=== PATIENT | female | born 1945 | race Caucasian/White ===

== ENCOUNTER 2018-07-30 14:36 | Inpatient (IN) | payer MEDICARE, OTHER ==
[~2018-07-30] VITALS: Ht 154.9 cm; Wt 97.1 kg
[~2018-07-30 14:36] MED LIST: 8 HOUR PAIN RE650 M1 PO; ADULT LOW DOSE81 MG; AMBEREN; ASPIRIN325 PO; CALTRATE-600 W1 EACH PO; CARTIA PO; COLACE100 MG PO; COUMADIN 5 MG TA5 M1 PO; CYMBALTA60 MG PO; ENALAPRIL-HCTZ1 EAC1 PO; FEOSOL PO; FISH OIL 1,0001 EAC5; GLYBURIDE PO; HUMALOG PE100 UNIT/1 SC; HYDROCHLOROTH12.5 M1 PO; IMDUR 30 MG TAB30 M1 PO; LEVEMIR SUBQ; METFORMIN PO; NITROSTAT0.4 MG SL; NOVOLOG100 UNIT/1; NOVOLOG100 UNIT/1 SQ; SIMVASTATIN40 MG PO; SORINE 80 MG TA80 M1 PO; VASOTEC5 MG PO; XALATAN2.5 ML OPHTHALMIC
[2018-07-30 17:00] VITALS: BP 133/60
[2018-07-30 20:00] VITALS: BP 101/60
[2018-07-30 20:07] LABS: HEMATOCRIT 30.3 % (37.0-47.0); HEMOGLOBIN 10.2 gm/dL (12.0-15.0); MCH 30.2 pg (26.0-34.0); MCHC 33.6 g/dL (28.0-37.0); MPV 9.2 fl. (7.2-11.1); RBC 3.37 mil/uL (4.20-5.00); RDW-CV 16.3 % (10.5-14.5); WBC 4.7 thou/uL (4.0-11.0)
--- NOTE | 2018-07-30 20:08 | NUR ---
ASSUMED PT CARE AT 1700, PT DIRECT ADMIT. AOX4, UP AD BIANCA, O2 SAT 90'S RA. 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 PT DENIES ANY PAIN. ADMISSION ASSESSMENT DONE. GET SITUATED TO ROOM. PT FOR ACCU CHECK. PT FOR XRAY, ECHO. PT IS ON CARB CONTROL DIET. 2000 ML FLUID RESTRICTION. HOURLY ROUNDING, CALL LIGHT WITHIN REACH. GIVE REPORT TO NIGHT NURSE. WILL CONTINUE TO MONITOR.
--- NOTE | 2018-07-30 20:26 | NUR ---
i have reviewed and agree with the assesments and note of Dominic Berry RN on 07/30/18
[2018-07-30 20:30] LABS: ALBUMIN 3.5 g/dL (3.4-5.0); CALCIUM 9.2 mg/dL (8.5-10.1); CREATININE 1.6 mg/dL (0.6-1.3); POTASSIUM 4.4 mmol/L (3.5-5.1); TOTAL BILIRUBIN 0.4 mg/dL (<0.1-1.0); TOTAL PROTEIN 7.1 g/dL (6.4-8.2)
[2018-07-31 00:24] VITALS: BP 126/52
[2018-07-31 04:00] VITALS: BP 126/60
[2018-07-31 08:00] VITALS: BP 95/63
[2018-07-31] MEDS ORDERED: FUROSEMIDE 20 M20 M1 PO (09:41)
--- NOTE | 2018-07-31 11:31 | NUR ---
ASSUMED PT CARE AT 0730, AOX4, UP AD BIANCA. O2 SAT AT 90'S RA. PT DENIES PAIN. TRACING AFIB ON ERADICATOR. PT FOR ACCU CHECK. PT LUNG SOUND CLEAR. PT HAS BILATERAL FEET EDEMA. PT ON 2000 ML FLUID RESTRICTION. PT FOR EKG, CARDIAC ECHO. VSS, AM ASSESSMENT CHARTED. MEDS GIVEN PER MAY. CALL LIGHT WITHIN REACH. WILL CONTINUE TO MONITOR.
--- NOTE | 2018-07-31 14:14 | NUR ---
Pt is A&O. Resides at home alone. Active and independent. No DME. No hx of HH or SNF. Planned cardioversion tomorrow. Goal is [place] at [place]. Follwoing.
--- NOTE | 2018-07-31 14:34 | 2DMMODE ---
[place] [address] 2 D/M-MODE ECHOCARDIOGRAM Name: SULEMA KEBEDE Room: [facility] IN [facility]#: [id number] Admission: 07/30/18 Attend Phys: Mahendra Foss, Discharge: Date of : 47 Date of Service: 07/31/18 1434 Report #: [id number] THIS REPORT FOR: //name// APPROVED REPORT Study performed: 07/31/2018 09:52:34 EXAM: Comprehensive 2D, Doppler, and color-flow Echocardiogram Patient Location: In-Patient Room #: [facility] Status: routine BSA: 1.94 HR: 100 bpm BP: 126/60 mmHg Rhythm: Atrial Fibrillation Other Information Study Quality: Good Indications Atrial Fibrillation 2D Dimensions IVSd: 11.02 (7-11mm) LVOT Diam: 19.90 (18-24mm) LVDd: 40.33 mm PWd: 12.01 (7-11mm) Ascending Ao: 32.62 (22-36mm) LVDs: 24.74 (25-40mm) Aortic Root: 28.96 mm Volumes Left Atrial Volume (Systole) LA ESV Index: 33.30 mL/m2 Aortic Valve AoV Peak David.: 1.30 m/s AO Peak Gr.: 6.78 mmHg LVOT Max P.63 mmHg AO Mean Gr.: 3.88 mmHg LVOT Mean P.30 mmHg LVOT Max V: 1.08 m/s AO V2 VTI: 26.37 cm LVOT Mean V: 0.70 m/s ELEAZAR (VTI): 2.78 cm2 LVOT V1 VTI: 23.60 cm Mitral Valve E/A Ratio: 0.91 MV Decel. Time: 169.90 ms MV E Max David.: 1.12 m/[place] [address] 2 D/M-MODE ECHOCARDIOGRAM Name: SULEMA KEBEDE Room: [address] IN .R.#: [id number] Admission: 07/30/18 Attend Phys: Mahendra Foss, Discharge: Date of : 47 Date of Service: 07/31/18 1434 Report #: [id number] MV PHT: 49.27 ms MVA (PHT): 4.47 cm2 TDI E/Lateral E': 10.18 E/Medial E': 9.33 Medial E' David.: 0.12 m/s Lateral E' David.: 0.11 m/s Pulmonary Valve PV Peak David.: 0.96 m/s PV Peak Gr.: 3.66 mmHg Tricuspid Valve RAP Estimate: 5.00 mmHg TR Peak Gr.: 24.38 mmHg RVSP: 29.00 mmHg PA Pressure: 29.00 mmHg Left Ventricle The left ventricle is normal size. There is normal LV segmental wall motion. There is normal left ventricular wall thickness. Left ventricular systolic function is normal. LVEF is 60-65%. This study is not technically sufficient to allow evaluation of the LV diastolic function due to atrial fibrillation. Right Ventricle The right ventricle is normal size. The right ventricular systolic function is normal. Atria Left atrium is mildly dilated. Right atrium is mildly dilated. Aortic Valve The aortic valve is normal in structure. No aortic regurgitation is present. There is no aortic valvular stenosis. Mitral Valve There is mitral annular calcification. Trace mitral regurgitation. No evidence of mitral valve stenosis. Tricuspid Valve The tricuspid valve is normal in structure. Trace tricuspid regurgitation. Mild pulmonary hypertension. Pulmonic Valve The pulmonary valve is normal in structure. There is no pulmonic [place] [address] 2 D/M-MODE ECHOCARDIOGRAM Name: THOMASFLORENTINO ANDREWSDONNA Mcgarry Room: [address]#: [id number] Admission: 07/30/18 Attend Phys: Mahendra Foss, Discharge: Date of : 47 Date of Service: 07/31/18 1434 Report #: [id number] Great Vessels The aortic root is normal in size. IVC is normal in size and collapses >50% with inspiration. Pericardium There is no pericardial effusion. <Conclusion> The left ventricle is normal size. There is normal left ventricular wall thickness. Left ventricular systolic function is normal. LVEF is 60-65%. Left atrium is mildly dilated. Right atrium is mildly dilated. Trace mitral regurgitation. Trace tricuspid regurgitation. Mild pulmonary hypertension. <ELECTRONICALLY SIGNED> By: Mahendra Foss MD, FACC 07/31/18 1434 1434 1434 Mahendra Foss MD, FACC /INF
--- NOTE | 2018-07-31 14:51 | EKG ---
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1945 Requested By: Angela Flynn Order Number: [id number] Reading MD: Mahendra Foss Measurements Intervals [place] Rate: 88 P: MD: QRS: -38 QRSD: 92 T: 157 QT: 403 QTc: 488 Interpretive Statements Atrial fibrillation Left axis deviation Abnormal R-wave progression, late transition Nonspecific T abnormalities, lateral leads Borderline prolonged QT interval Compared to ECG 10/27/2010 09:16:17 T-wave abnormality now present Sinus rhythm no longer present Electronically Signed On 07-31-2018 14:51:28 CDT by Mahendra Foss [email or web address] <ELECTRONICALLY SIGNED> By: Mahendra Foss MD, [facility] 07/31/18 1451 1134 [id number] Mahendra Foss MD, [facility] /EPI
[2018-07-31 17:14] VITALS: BP 124/58
--- NOTE | 2018-07-31 18:22 | NUR ---
PT AOX4. UP AD BIANCA. PT STILL AFIB. PT HR 80-90s. PT FOR ACCU CHECK. 2OOOML FLUID RESTRICTION. PT HAS BILATERAL FEET/LEG EDEMA. IV ACCESS INTACT. PT NPO MIDNIGHT. REMINDED TO USE CALL LIGHT. ALL NEEDS MET AT THIS TIME. WILL CONTINUE TO MONITOR.
--- NOTE | 2018-07-31 18:52 | NUR ---
I HAVE REVIEWED AND AGREE WITH THE ASSESMENT AND NOTE OF LUCIA Balderas RN ON 07/30/18
[2018-07-31 20:00] VITALS: BP 126/60
[2018-08-01 00:07] VITALS: BP 134/56
[2018-08-01 04:22] VITALS: BP 137/57
[2018-08-01 05:20] LABS: CHOLESTEROL 130 mg/dL (<200); HDL CHOLESTEROL 40 mg/dL (>40); LDL CHOLESTEROL 57 mg/dL (<100); TC:HDL 3.3 Ratio (Not establshd); TRIGLYCERIDE 169 mg/dL (<150); VLDL 34 mg/dL (<40)
[2018-08-01 05:40] LABS: SERUM ASSESSMENT CLEAR
--- NOTE | 2018-08-01 07:00 | NUR ---
ASSUMED PT CARE AT 1930. ASSESSMENT COMPLETED CHARTED. ABLE TO MAKE NEEDS KNOWN. NO C/O PAIN OR DISCOMFORT. UP AD BIANCA. PT CONVERTED TO SR AROUND 11PM FROM AFIB. PT RESTING IN BED AT THIS TIME. PT STILL NPO JUST IN CASE CARDIOLOGY WANTS TO RUN TEST ON PT. WILL CONTINUE TO MONITOR.
[2018-08-01 08:00] VITALS: BP 120/55
[2018-08-01 10:19] VITALS: BP 120/55
[2018-08-01] MEDS ORDERED: GABAPENTIN 100100 MG PO (10:47)
--- NOTE | 2018-08-01 10:51 | EKG ---
[place] [address] ELECTROCARDIOGRAM REPORT Name: SULEMA KEBEDE Room: [address] ADM IN M.R.#: [id number] Admission: 07/30/18 Attend Phys: Mahendra Foss MD Discharge: Date of : 47 Report #: [id number] THIS REPORT FOR: //name// 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1945 Requested By: Angela Flynn Order Number: [id number] Reading MD: Dylon Mcnamara Measurements Intervals [place] Rate: 67 P: 52 RI: 194 QRS: -33 QRSD: 93 T: 51 QT: 464 QTc: 490 Interpretive Statements Sinus rhythm Left axis deviation Abnormal R-wave progression, late transition Borderline prolonged QT interval Compared to ECG 07/31/2018 11:34:17 Atrial fibrillation no longer present T-wave abnormality no longer present Electronically Signed On 08-01-2018 10:51:33 CDT by Dylon Mcnamara [email or web address] <ELECTRONICALLY SIGNED> By: Dylon Mcnamara MD, [facility] 08/01/18 1051 9 9 Dylon Mcnamara MD, [facility] /EPI
[2018-08-01] MEDS ORDERED: XARELTO20 MG PO (10:57)
[2018-08-01] MEDS ORDERED: GLIPIZIDE 10 MG10 MG PO (10:59)
--- NOTE | 2018-08-01 11:45 | NUR ---
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 VSS. DISCHARGE ORDERED. DISCHARGE INSTRUCTIONS GIVEN TO PT. NO FURTHER QUESTIONS. PT LEFT ACCOMPANIED BY RELATIVE AND VOLUNTEER ON A WHEELCHAIR.
--- NOTE | 2018-08-04 15:12 | NUR ---
Scheduled to start phase 3 Outpatient Cardiac Rehab on 2018 at 1300.
== END 2018-08-01 11:45 | disposition home or self-care (01) | DRG 291 ==
LOC: M.2W 14:36
PROVIDERS: Registered Nurse; ADMIT Internal Medicine Cardiovascular Disease
DX: I13.0 Hypertensive heart and chronic kidney disease with heart failure and stage 1 through stage 4 chronic kidney disease, or unspecified chronic kidney disease (principal); I50.33 Acute on chronic diastolic (congestive) heart failure; I48.0 Paroxysmal atrial fibrillation; N18.9 Chronic kidney disease, unspecified; E11.22 Type 2 diabetes mellitus with diabetic chronic kidney disease; E78.5 Hyperlipidemia, unspecified; I25.10 Atherosclerotic heart disease of native coronary artery without angina pectoris; Z79.82 Long term (current) use of aspirin; Z79.899 Other long term (current) drug therapy